=== PATIENT | male | born 1955 | race Caucasian/White ===

== ENCOUNTER 2019-07-11 16:42 | Emergency (ER) | payer OTHER ==
[~2019-07-11] VITALS: Ht 172.7 cm; Wt 63.5 kg
[2019-07-11] MEDS ORDERED: NORCO 5-325 TA1 EACH PO (19:35)
== END 2019-07-11 20:01 | disposition home or self-care (01) ==
LOC: ED 16:42
DX: S80.11XA Contusion of right lower leg, initial encounter (principal); M79.604 Pain in right leg; M79.89 Other specified soft tissue disorders; Z88.6 Allergy status to analgesic agent; X58.XXXA Exposure to other specified factors, initial encounter; Y93.89 Activity, other specified; Y92.89 Other specified places as the place of occurrence of the external cause; Y99.8 Other external cause status